=== PATIENT | male | born 1950 | race Caucasian/White ===

== ENCOUNTER 2018-05-31 05:39 | Outpatient (CLI) | payer OTHER ==
[~2018-05-31] VITALS: Ht 185.4 cm; Wt 99.8 kg
[2018-05-31] MEDS ORDERED: FISH1CAP15 PO (11:02)
[2018-05-31] MEDS ORDERED: LISI40TA PO (11:07)
[2018-05-31] MEDS ORDERED: MELO15TA39 PO (11:07)
[2018-05-31] MEDS ORDERED: LISI1TAB8 PO (11:07)
[2018-05-31] MEDS ORDERED: CHOL100045 PO (11:07)
[2018-05-31] MEDS ORDERED: GABA-488 PO (11:07)
== END 2018-05-31 11:09 | disposition home or self-care (01) ==
LOC: PREOP 05:39
PROVIDERS: ATTEND Surgery
DX: Z01.818 Encounter for other preprocedural examination (principal)

== ENCOUNTER → 2018-06-07 | Day surgery (SDC) | payer OTHER ==
[~2018-06-07] VITALS: Ht 185.4 cm; Wt 99.8 kg
[~2018-06-07] MED LIST: ACETAMINOPHEN 325 MG TABLET PO PRN; CHOL100045 PO; FISH1CAP15 PO; GABA-488 PO; HYDROcodone/APAP 5 MG/325 MG (LORTAB) TAB PO PRN; LIDOCAINE JELLY 2% 6 ML SYRINGE MM PRN; LIDOCAINE JELLY 2% 6 ML SYRINGE ONE; LISI1TAB8 PO; LISI40TA PO; MELO15TA39 PO; MIDAZOLAM 2 MG/2 ML (VERSED) VIAL IVP ONE; MIDAZOLAM 2 MG/2 ML (VERSED) VIAL ONE; NS IV 500 ML 500 ML IV PRN; ONDANSETRON 4 MG/2 ML (SDV) Z0FRAN IV PRN; fentaNYL INJECTION 100 MCG/2 ML AMP IVP ONE; fentaNYL INJECTION 100 MCG/2 ML AMP ONE; morphine INJ 10 MG/ML 1ML (SYR OR VIAL) IV PRN
[2018-06-07 08:25] VITALS: BP 145/83
--- NOTE | 2018-06-07 09:39 | Conscious Sedation/ASA ---
Conscious Sedation Pre-Proced Time 09:00 ASA Score 2 For ASA 3 and 4: Consider anesthesia and medical clearance. Also, for patients with a history of failed moderate sedation consider anesthesia. Airway Lungs Heart ASA score ASA 1: a normal healthy patient ASA 2: a patient with a mild systemic disease (mid diabetes, controlled hypertension, obesity ASA 3: a patient with a severe systemic disease that limits activity (angina , COPD, prior Myocardial infarction) ASA 4: a patient with an incapacitating disease that is a constant threat to life (CHF, renal failure) ASA 5: a moribund patient not expected to survive 24 hrs. (ruptured aneurysm) ASA 6: a declared brain- patient whose organs are being harvested. For emergent operations, add the letter E after the classification Mallampati Classification Grade 2 Sedation Plan Analgesia, Amnesia, Plan communicated to team members, Discussed options with patient/fam, Discussed risks with patient/fam The patient is an appropriate candidate to undergo the planned procedure, sedation, and anesthesia. The patient immediately re-assessed prior to indication. DARIN DAVID MD Jun 07, 2018 09:39
--- NOTE | 2018-06-07 09:40 | Progress Note-Pre Operative ---
Pre-Operative Progress Note H&P Reviewed The H&P was reviewed, patient examined and no changes noted. Date Seen by Provider: Jun 07, 2018 Time Seen by Provider: 09:00 Date H&P Reviewed: Jun 07, 2018 Time H&P Reviewed: 09:00 Pre-Operative Diagnosis: hx colon polyp DARIN DAVID MD Jun 07, 2018 09:40
--- NOTE | 2018-06-07 09:41 | Discharge Inst-Surgical ---
D/C Lap Instructions-FRANKIE Follow Up Activity as tolerated High Fiber Diet 25g or more per day Avoid Alcohol, Caffeine, Spicy [place]aly and Acid foods. Drink 64 fluid oz or more of fluids per day. Symptoms to Report: Fever over 101 degree F, Nausea/Vomiting If any problems/questions: Contact your physician or go to Emergency Room DARIN DAVID MD Jun 07, 2018 09:41
[2018-06-07 10:25] VITALS: BP 160/80
--- NOTE | 2018-06-07 10:28 | Progress Note-Post Operative ---
Post-Operative Progess Note Surgeon (s)/Career And Transition Teacher (s) Surgeon DARIN DAVID MD Career And Transition Teacher: none Pre-Operative Diagnosis hx colon polyp Post-Operative Diagnosis mild chronic stage 1 ext and int hemorrhoids. Procedure & Operative Findings Date of Procedure 06/07/18 Procedure Performed/Findings Colonoscopy. Anesthesia Type CS Estimated Blood Loss Estimated blood loss (mL): minimal Specimens/Packing Specimens Removed none DARIN DAVID MD Jun 07, 2018 10:28
--- NOTE | 2018-06-07 14:18 | OPERATIVE REPORT ---
DATE OF SERVICE: 06/07/2018 ATTENDING PRIMARY CARE PHYSICIAN: Dr. Carli Boswell. PREOPERATIVE DIAGNOSIS: Screening colonoscopy and history of colon polyps. POSTOPERATIVE DIAGNOSIS: Mild chronic stage I external and internal hemorrhoids. Remainder of the colon and rectum were normal. PROCEDURE: Colonoscopy. SURGEON: Darin Porter MD ANESTHESIA: Conscious sedation. ESTIMATED BLOOD LOSS: Minimal. FINDINGS: Mild chronic stage II external and internal hemorrhoids, not actively edematous nor inflamed and no bleeding. Prostate gland was palpable and appeared normal. The remainder of the rectum and colon were normal. There were no polyps or any neoplasms identified. DISPOSITION: The patient tolerated the procedure well. INDICATIONS: The patient is a 67-year-old male in need of a screening colonoscopy. He reports his last colonoscopy was approximately five years ago where two polyps were removed and found to be benign. He reports a colonoscopy before that was approximately five years where another set of polyps were found and removed and found to be benign tubular adenomas. He states that he is doing well otherwise and does not report any symptoms. DESCRIPTION OF PROCEDURE: The patient was brought to the endoscopy suite, laid in the left lateral decubitus position. After adequate IV pain and sedating medications and conscious sedation anesthesia, a digital rectal examination was performed. Mild chronic stage I external and internal hemorrhoids were identified, which were not actively edematous nor inflamed and no bleeding. Normal sphincter tone was felt and there were no palpable masses. Prostate gland was palpable and appeared normal. The endoscope was then intubated to the anus and rectum was gently insufflated. The endoscope was then advanced to the valves of Maldonado of the rectum with no polyps or any neoplasms identified. We then proceeded through the sigmoid colon where no diverticulosis was identified. The endoscope was then advanced to the remainder of the descending, transverse and ascending colon to the cecum. These segments were normal. There were no polyps or any neoplasms identified throughout the colon or rectum. The endoscope was then slowly withdrawn while taking a second look and suctioning of residual air with no additional findings. The patient tolerated the procedure well. We will recommend medical management with a high fiber diet with at least 30 grams of fiber daily as well as significant amounts of water daily to promote soft stools on a daily basis. No polyps were identified and his previous polyps appear to be benign tubular adenomas and he also does not have any first degree family history of colon cancer and he may wait another 10 years for his next colonoscopy. However, sooner if he becomes symptomatic. Job ID: [id number] DocumentID: [id number] Dictated Date: 06/07/2018 10:19:33 Metal Drawer Date: 06/07/2018 14:18:29 Dictated By: DARIN PORTER MD
== END | disposition home or self-care (01) ==
LOC: ENDO 08:00
PROVIDERS: ATTEND Surgery
DX: Z12.11 Encounter for screening for malignant neoplasm of colon (principal); K64.0 First degree hemorrhoids; Z86.010 Personal history of colon polyps; I10 Essential (primary) hypertension; M19.91 Primary osteoarthritis, unspecified site; Z96.662 Presence of left artificial ankle joint; Z79.899 Other long term (current) drug therapy

== ENCOUNTER 2020-09-22 05:37 | Outpatient (CLI) | payer OTHER ==
[~2020-09-22] VITALS: Ht 185.4 cm; Wt 101.6 kg
[~2020-09-22 05:37] MED LIST changes: -ACETAMINOPHEN 325 MG TABLET PO PRN; -HYDROcodone/APAP 5 MG/325 MG (LORTAB) TAB PO PRN; -LIDOCAINE JELLY 2% 6 ML SYRINGE MM PRN; -LIDOCAINE JELLY 2% 6 ML SYRINGE ONE; +LISI1TAB46 PO; -LISI1TAB8 PO; -LISI40TA PO; +LISI40TA9 PO; -MIDAZOLAM 2 MG/2 ML (VERSED) VIAL IVP ONE; -MIDAZOLAM 2 MG/2 ML (VERSED) VIAL ONE; -NS IV 500 ML 500 ML IV PRN; -ONDANSETRON 4 MG/2 ML (SDV) Z0FRAN IV PRN; -fentaNYL INJECTION 100 MCG/2 ML AMP IVP ONE; -fentaNYL INJECTION 100 MCG/2 ML AMP ONE; -morphine INJ 10 MG/ML 1ML (SYR OR VIAL) IV PRN
[2020-09-22] MEDS ORDERED: OMEG-160 PO (14:59)
[2020-09-22] MEDS ORDERED: LISI40TA9 PO (14:59)
[2020-09-22] MEDS ORDERED: MELO15TA39 PO (14:59)
[2020-09-22] MEDS ORDERED: CHOL10007 PO (14:59)
[2020-09-22] MEDS ORDERED: LISI1TAB46 PO (14:59)
[2020-09-22] MEDS ORDERED: AMLO-251 PO (14:59)
[2020-09-22] MEDS ORDERED: ATOR20TA66 PO (14:59)
[2020-10-01] MEDS ORDERED: ACHD5005 PO (13:50)
== END 2020-09-22 15:08 | disposition home or self-care (01) ==
LOC: PREOP 05:37
PROVIDERS: ATTEND Surgery
DX: Z01.818 Encounter for other preprocedural examination (principal)

== ENCOUNTER 2020-10-01 09:15 | Day surgery (SDC) | payer OTHER ==
[~2020-10-01] VITALS: Ht 185.4 cm; Wt 101.6 kg
[2020-10-01] VITALS (12 sets, daily range): BP systolic 132–153; BP diastolic 67–83
[~2020-10-01 09:15] MED LIST changes: +AMLO-251 PO; +ATOR20TA66 PO; +CHOL10007 PO; +OMEG-160 PO
[2020-10-01] MEDS ORDERED: MIDAZOLAM 2 MG/2 ML (VERSED) VIAL INJ ONE (09:16)
[2020-10-01] MEDS ORDERED: fentaNYL INJ 100 MCG/2 ML AMP IV ONE (09:16)
--- NOTE | 2020-10-01 09:44 | Progress Note-Pre Operative ---
Pre-Operative Progress Note H&P Reviewed The H&P was reviewed, patient examined and no changes noted. Time Seen by Provider: 09:40 Date H&P Reviewed: Oct 01, 2020 Time H&P Reviewed: 09:40 Pre-Operative Diagnosis: Incarcerated Left inguinal hernia, site marked SHAMEKA PRINCE DO Oct 01, 2020 09:44
[2020-10-01] MEDS ORDERED: ceFAZolin 2 GM IV Premixed 50 ML IV ONE (09:45)
[2020-10-01] MEDS: LACTATED RINGERS 1,000 ML IV PRN ×2 (09:52→12:29)
[2020-10-01] MEDS ORDERED: LIDOCAINE/EPI 1%-1:100,000 (XYLOCAINE) 20ML ONE (11:20)
--- NOTE | 2020-10-01 13:49 | Progress Note-Post Operative ---
Post-Operative Progess Note Surgeon (s)/Jewel Hole Finish Opener (s) Surgeon SHAMEKA PRINCE DO Jewel Hole Finish Opener: CYNDY AguilaII Pre-Operative Diagnosis Incarcerated Left inguinal hernia, site marked Post-Operative Diagnosis same indirect Procedure & Operative Findings Date of Procedure 10/01/20 Procedure Performed/Findings After informed consent was obtained, the patient was brought to the operating room and placed on the operating table in a supine position. He was sterilely prepped and draped in a normal fashion. Local lidocaine was used to infiltrate the skin above the umbilicus. I made an incision with #11 blade, carried down to the skin into subcutaneous tissue and then deepened down the subcutaneous tissue with Bovie electrocautery down to the fascia. Fascia was incised with Bovie electrocautery and bluntly entered the abdomen, swept a finger around, placed 0 Vicryl [id number] suture and placed limited trocar port under direct visualization. Created pneumoperitoneum, able to visualize the hernia and took a picture of this and then placed two 8 mm ports about 10 cm on either side of the midline port using a local lidocaine, 11 blade for stab incision and then advanced the robotic port under direct visualization. Once this was in, I then placed the patient in Trendelenburg and then placed the working instruments, the fenestrated bipolar and the scissors. Looked on the left side and saw an indirect incarcerated inguinal hernia. No hernia defect on the right side. There was actually intestine stuck in the inguinal hernia on the lef. Next, I came across the peritoneum approximately 8 cm away from the hernia defect, going across laterally starting lateral about 17cm and cutting toward the median umbilical ligament. I then carefully dissected the visceral peritoneum away and down and then in the midline, went through the parietal side and dissected down to the pubic tubercle, dissecting this down carefully pushing the peritoneum away, I was able to then visualize the pubic tubercle and Madi's ligament. I went 2 cm posterior and at this point, we then had a critical view of the dissection, able to dissect 2 cm across the midline to the right side, 2 cm posterior to the Madi's ligament, able to then parietalize the vas deferens and spermatic vessels right at the groove between Madi's and iliac vein and able to dissect, make sure there was no peritoneum between those two, able to see the indirect hernia space, took a picture of this, looked at the femoral space (no hernia seen). Then I carefully teased out the hernia sac and could visualize the indirect hernia space. Next I looked on the cord and cord structures. There was a large cord lipoma that I was able to reduce this. I could clearly see the inguinal canal and the indirect space. Next I carried the posterior lateral dissection all the way out and then placed a 12 x 17 Midwieght Bard 3DMax mesh. It laid in nicely, covered the hernia defect and the rest of the area. It was above the peritoneum, sutured it at the pubic tubercle with a 3-0 Vicryl suture and tied this off. This appeared to lay in very nicely. I then brought down the pneumoperitoneum to about 8 mmHg and then started closing the peritoneum. Started laterally and used a 2-0 V-lock barbed suture to start a running stitch to close the peritoneum. This was closed nicely, took a picture of the closure at this point, then removed both needles had switched to a suture armor reconnaissance vehicle driver from the scissors. The patient was then placed back supine, removed all ports under direct visualization, allowed pneumoperitoneum to escape and then closed the supraumbilical incision, closing the fascia with 0 Vicryl suture previously placed. Copiously irrigated all incisions and then closed the two small 8 mm incisions with two interrupted 4-0 undyed Monocryl subcuticular stitches and closed the supraumbilical incision with three interrupted undyed Monocryl subcuticular stitch. Area was cleaned and dried. Dermabond was placed. The patient tolerated the procedure. The sponge, instrument and needle counts were correct at the end of the case. Anesthesia Type GET Estimated Blood Loss Estimated blood loss (mL): less than 10ml Specimens/Packing Specimens Removed none SHAMEKA PRINCE DO Oct 01, 2020 13:49
[2020-10-01] MEDS ORDERED: ACHD5005 PO (13:50)
--- NOTE | 2020-10-01 13:51 | Discharge Inst-Surgical ---
Discharge Inst-Surgical Depart Medication/Instructions New, Converted or Re-Newed RX: Transmitted to Pharmacy Patient Instructions Follow up Appt: Make appointment for 1 week. [phone] Instructions: No lifting greater than 20 pounds. No strenuous activity. May shower in 24 hours, no tub bath or soaking. Use incentive spirometer at home as directed. No Smoking Skin/Wound Care: May remove bandages in am. You need to leave the Dermabond on incision it will fall off on it's own. Symptoms to Report: Appetite Changes, Extremity Discoloration, Numbness/Tingling, Swelling Increased, Bleeding Excessive, Eyesight Changes, Pain Increased, Urine Color Change, Constipation(Persistent), Fever over 101 degree F, Pain/Pressure in chest, Urinating Difficulty, Cough Up/Vomit Blood, Heart Beat Irreg/Pounding, Pain/Pressure in jaw, Cramps in feet or legs, Lightheadedness, Pain/Pressure in shoulder, Diarrhea(Persistent), Memory Changes Suddenly, Questions/Concerns, Weight gain consecutive days, Dizziness/Fainting, Nausea/Vomiting, Shortness of Breath, Weight gain over 2 pounds If questions or concerns contact your physician Or seek help at emergency department. Activity Activity as Tolerated: Yes Activity Instructions: Avoid Stress to Incision Driving Instructions: No Driving/Refer to Dr. Mckeon Discharge Diet: No Restrictions Diet After 24 Hours: Clear Liquid if Nauseous If Any Problems/Questions/Issu: Contact Your Physician, Go to Emergency Room Skin/Wound Care Infection Signs and Symptoms: Increased Redness, Foul Odor of Wound, Increased Drainage, Skin Itchy or Has a Rash, Increased Swelling, Temperature Above 101 F Bathing Instructions: Shower Stitches/[place]/Dermabond Dis: SHAMEKA Howard DO Oct 01, 2020 13:51
[2020-10-01] MEDS ORDERED: HYDROmorphone 2 MG/ML VIAL (DILAUDID) IV ONE (14:00)
[2020-10-01] MEDS ORDERED: morphine INJ 10 MG/ML 1ML (SYR OR VIAL) IVP ONE (14:00)
[2020-10-01] MEDS ORDERED: MEPERIDINE (DEMEROL) INJ 50 MG/ML IVP ONE (14:00)
[2020-10-01] MEDS ORDERED: ONDANSETRON 4 MG/2 ML (SDV) Z0FRAN IVP PRN (14:00)
[2020-10-01] MEDS ORDERED: PROMETHAZINE INJ 25 MG/ML (PHENERGAN) AMP IVP ONE (14:00)
== END 2020-10-01 16:10 | disposition home or self-care (01) ==
LOC: SDC 09:15
PROVIDERS: ATTEND Surgery
DX: K40.30 Unilateral inguinal hernia, with obstruction, without gangrene, not specified as recurrent (principal); I10 Essential (primary) hypertension; M19.90 Unspecified osteoarthritis, unspecified site; Z79.899 Other long term (current) drug therapy
CPT/HCPCS: 87081